=== PATIENT | female | born 1955 | race African-American/Black ===

== ENCOUNTER 2018-01-16 15:26 | Emergency (ER) | payer MEDICAID, OTHER ==
[~2018-01-16] VITALS: Ht 162.6 cm; Wt 75.7 kg
[~2018-01-16 15:26] MED LIST: NORCO 5-325 TA1 EACH ORAL
[2018-01-16] MEDS ORDERED: AMBIEN5 MG ORAL (15:47)
[2018-01-16] MEDS ORDERED: XANAX0.5 MG ORAL (15:47)
[2018-01-16] MEDS ORDERED: IBUPROFEN600 MG ORAL (15:48)
--- NOTE | 2018-01-16 16:20 | Emergency Room Report ---
History of Present Illness General Chief Complaint: Earache Source: Patient Present Illness HPI 62-year-old female presents to the emergency department complaining of bilateral tinnitus times one week. Patient denies vertigo, dizziness, headache , nausea or vomiting. Patient denies trauma or fall. Denies pain. She reports 2 weeks ago she had moderate low back pain for which she states she took more of an an aspirin then directed on OTC label. Patient states no new medications otherwise she currently takes in a as needed and Ambien for sleep as needed which she has been taking for " a while." Denies rashes, pain or stiffness. Denies history of high blood pressure. She reports some nasal congestion. Denies CP, Palpitations, LOC, AMS, dizziness, Changes in Vision, Sensation, paresthesias, or a sudden severe headache. Allergies: Uncoded Allergies: seafood (Allergy, Unknown, 08/27/14) Patient History Past Medical History: see triage record Past Surgical History: none Pertinent Family History: none Now: No Reviewed Nursing Documentation: PMH: Agreed; PSxH: Agreed Nursing Documentation-PMH Past Medical History: No Stated History Review of Systems All Other Systems: negative except mentioned in HPI Physical Exam Vital Signs Date Time Temp Pulse Resp B/P (MAP) Pulse Ox O2 Delivery O2 Flow Rate FiO2 01/16/18 15:42 97.7 79 16 128/82 97 Room Air 97.7 Sp02 EP Interpretation: reviewed, normal General Appearance: no apparent distress, alert, GCS 15, non-toxic Head: normocephalic, atraumatic Eyes: bilateral eye normal inspection, bilateral eye PERRL ENT: hearing grossly normal, normal voice, TMs + canals normal Neck: full range of motion, no carotid bruits Respiratory: lungs clear, normal breath sounds, speaking full sentences Cardiovascular #1: regular rate, rhythm Musculoskeletal: back normal, gait/station normal, normal range of motion Neurologic: alert, oriented x3, responsive, motor strength/tone normal, sensory intact, normal gait, speech normal, grossly normal Psychiatric: judgement/insight normal Skin: normal color, no rash, warm/dry, well hydrated Lymphatic: no adenopathy Medical Decision Making PA Attestation Dr. Wilhelm is my supervising Physician whom patient management has been discussed with. Diagnostic Impression: Primary Impression: Tinnitus, bilateral ER Course 62-year-old female presents to the emergency department complaining of bilateral tinnitus times one week. Patient denies vertigo, dizziness, headache , nausea or vomiting. Patient denies trauma or fall. Denies pain. She reports 2 weeks ago she had moderate low back pain for which she states she took more of an an aspirin then directed on OTC label. Patient states no new medications otherwise she currently takes in a as needed and Ambien for sleep as needed which she has been taking for " a while." Denies rashes, pain or stiffness. Denies history of high blood pressure. She reports some nasal congestion. Denies CP, Palpitations, LOC, AMS, dizziness, Changes in Vision, Sensation, paresthesias, or a sudden severe headache. Ddx considered but are not limited to Carotid artery pathology, labyrinthitis, ototoxicity, FB, OM/OE, just to name a few. Vital signs: are WNL, pt. is afebrile H&PE are most consistent with Normal ENT examination. no bruits. ORDERS: none required at this time, the diagnosis is clinical ED INTERVENTIONS: None required at this time. -d/w pt. conservative treatment, and to follow up with a primary care provider for ENT referral. pt given a list of primary care clinics for follow up. d/w pt. to return to the ED with worsening or new symptoms. Discussed with patient that she should take medications as directed. Discontinue use of ibuprofen. DISCHARGE: At this time pt. is stable for d/c to home. Will provide printed patient care instructions, and any necessary prescriptions. Care plan and follow up instructions have been discussed with the patient prior to discharge. Last Vital Signs Date Time Temp Pulse Resp B/P (MAP) Pulse Ox O2 Delivery O2 Flow Rate FiO2 01/16/18 15:42 97.7 79 16 128/82 97 Room Air 97.7 Disposition: HOME, SELF-CARE Condition: Stable Scripts Pseudoephedrine Hcl* (NEXAFED*) 30 Mg Tablet 30 MG ORAL Q6H, #15 TAB Prov: Estelle Whittington 01/16/18 Patient Instructions: Tinnitus Additional Instructions: Take any previously prescribed medications as directed. Follow up with am ENT Specialist and Customer Account Executive in 3-5 days, even if your symptoms have resolved. --Please review list of primary care clinics, if you do not already have a primary care provider Return sooner to ED if new symptoms occur, or current symptoms become worse. - Please note that this Emergency Department Report was dictated using Bravo[employer]admission nurse coordinator technology software, occasionally this can lead to erroneous entry secondary to interpretation by the dictation equipment. Estelle Whittington Jan 16, 2018 16:20
[2018-01-16] MEDS ORDERED: NEXAFED30 MG ORAL (16:33)
[2018-01-16 16:42] VITALS: BP 118/72
== END 2018-01-16 16:42 | disposition home or self-care (01) ==
LOC: EMR 16:14
DX: H93.13 Tinnitus, bilateral (principal)
CPT/HCPCS: 99283

== ENCOUNTER 2018-07-13 08:34 | Emergency (ER) | payer MEDICAID ==
[~2018-07-13] VITALS: Ht 162.6 cm; Wt 74.8 kg
[~2018-07-13 08:34] MED LIST changes: +AMBIEN5 MG ORAL; +IBUPROFEN600 MG ORAL; +NEXAFED30 MG ORAL; +XANAX0.5 MG ORAL
--- NOTE | 2018-07-13 09:17 | Emergency Room Report ---
History of Present Illness General Chief Complaint: Upper Respiratory Illness Source: Patient Present Illness HPI This patient states that for the past day she has had cough and brown-colored sputum production. She has a history of heavy tobacco use and continues to smoke. She states that usually when these type of symptoms occur she developed a pneumonia. She denies fever or chills. She denies nausea or vomiting. She is also requesting cough syrup with hydrocodone. She has no other complaints. Allergies: Uncoded Allergies: seafood (Allergy, Unknown, 08/27/14) Patient History Past Medical History: none, see triage record Social History: Reports: smoking; Denies: alcohol use, drug use Now: No Reviewed Nursing Documentation: PMH: Agreed; PSxH: Agreed Review of Systems All Other Systems: negative except mentioned in HPI Physical Exam Vital Signs Date Time Temp Pulse Resp B/P (MAP) Pulse Ox O2 Delivery O2 Flow Rate FiO2 07/13/18 08:39 98.4 90 18 106/68 98 Room Air 98.4 Sp02 EP Interpretation: reviewed, normal General Appearance: no apparent distress, alert, GCS 15, non-toxic Head: normocephalic, atraumatic Eyes: bilateral eye normal inspection, bilateral eye PERRL ENT: hearing grossly normal, normal pharynx, no angioedema, normal voice Neck: full range of motion, supple/symm/no masses Respiratory: chest non-tender, lungs clear, normal breath sounds, no respiratory distress, no retraction, no accessory muscle use, speaking full sentences Cardiovascular #1: regular rate, rhythm, no edema Gastrointestinal: normal bowel sounds, non tender, soft, non-distended, no guarding, no rebound Rectal: deferred Musculoskeletal: back normal, gait/station normal, normal range of motion, non- tender Neurologic: alert, oriented x3, responsive, motor strength/tone normal, sensory intact, speech normal Psychiatric: judgement/insight normal, memory normal, mood/affect normal, no suicidal/homicidal ideation Skin: normal color, no rash, warm/dry, well hydrated Medical Decision Making Diagnostic Impression: Primary Impression: Bronchitis ER Course This patient has a clinical presentation with bronchitis. The evaluation was very reassuring with a normal lung exam, no respiratory distress, normal pulse oximetry. The patient has a heavy history of tobacco use, and a history of pneumonia, so we will place this patient on a Z-[place]. She likely has undiagnosed COPD. I will treat supportively with cough suppressants, although I will not be prescribing narcotic-based cough syrup as I felt this is not indicated. The patient declined a chest x-ray. No emergency medical condition was identified. Last Vital Signs Date Time Temp Pulse Resp B/P (MAP) Pulse Ox O2 Delivery O2 Flow Rate FiO2 07/13/18 08:49 90 18 Room Air 07/13/18 08:39 98.4 106/68 98 98.4 Status: improved Disposition: HOME, SELF-CARE Condition: Improved Flower Wilhelm DO Jul 13, 2018 09:17
[2018-07-13 09:19] VITALS: BP 112/60
[2018-07-13] MEDS ORDERED: ZITHROMAX250 MG ORAL (09:22)
[2018-07-13] MEDS ORDERED: ROBITUSSIN NIG237 ML PO (09:22)
[2018-07-13] MEDS ORDERED: ANTI-ITCH28 G1 TP (09:22)
[2018-07-13 09:35] VITALS: BP 112/60
== END 2018-07-13 09:35 | disposition home or self-care (01) ==
LOC: EMR 09:21
DX: J40 Bronchitis, not specified as acute or chronic (principal)
CPT/HCPCS: 99282

== ENCOUNTER 2018-12-13 15:27 | Emergency (ER) | payer MEDICAID ==
[~2018-12-13] VITALS: Ht 162.6 cm; Wt 74.8 kg
[~2018-12-13 15:27] MED LIST changes: +ANTI-ITCH28 G1 TP; +ROBITUSSIN NIG237 ML PO; +ZITHROMAX250 MG ORAL
[2018-12-13 15:36] VITALS: BP 113/77
--- NOTE | 2018-12-13 15:40 | NUR ---
ED Nurse Note: Patient walked into ED c/o coughing for 10 days. a/o x4 ambulatory vss
--- NOTE | 2018-12-13 15:50 | Emergency Room Report ---
History of Present Illness General Chief Complaint: Flu Like Symptoms Source: Patient Present Illness HPI 64-year-old female with history of heavy tobacco smoking or complaining of 10 days of cough with green phlegm. Patient reports that she was taking cough medication with codeine that was given by her primary care doctor previously but her primary care doctor is in [place] and could not get a hold of her. Patient denies any fever or chills, any SOB, palpitations chest pain. Denies rhinorrhea or congestion. Denies sore throat and ear pain. Denies diarrhea or abdominal pain nausea vomiting. Allergies: Uncoded Allergies: seafood (Allergy, Unknown, 08/27/14) Patient History Past Medical History: see triage record Past Surgical History: none Social History: Reports: smoking - tobacco Immunizations: UTD Reviewed Nursing Documentation: PMH: Agreed; PSxH: Agreed Review of Systems All Other Systems: negative except mentioned in HPI Physical Exam Vital Signs Date Time Temp Pulse Resp B/P (MAP) Pulse Ox O2 Delivery O2 Flow Rate FiO2 12/13/18 15:36 97.7 75 16 113/77 95 Room Air Sp02 EP Interpretation: reviewed, normal General Appearance: normal inspection, well appearing, no apparent distress Head: normocephalic Eyes: bilateral eye normal inspection, bilateral eye PERRL ENT: normal ENT inspection, normal pharynx, no angioedema, TMs + canals normal Neck: normal inspection, supple Respiratory: normal inspection, chest non-tender, lungs clear, no rhonchi, no accessory muscle use Cardiovascular #1: normal inspection, regular rate, rhythm, no murmur Gastrointestinal: normal inspection, soft Musculoskeletal: normal inspection, back normal Neurologic: normal inspection, alert Psychiatric: normal inspection, judgement/insight normal Skin: normal inspection, normal color, no rash Lymphatic: normal inspection, no adenopathy Medical Decision Making PA Attestation All diagnoses and treatment plans are reviewed and discussed with my supervising physician Dr. Michele Diagnostic Impression: Primary Impression: Bronchitis ER Course 64-year-old female with history of heavy tobacco smoking or complaining of 10 days of cough with green phlegm. Patient reports that she was taking cough medication with codeine that was given by her primary care doctor previously but her primary care doctor is in [place] and could not get a hold of her. Patient denies any fever or chills, any SOB, palpitations chest pain. Denies rhinorrhea or congestion. Denies sore throat and ear pain. Denies diarrhea or abdominal pain nausea vomiting. Ddx considered but are not limited to bronchitis, pneumonia, ashtma Vital signs: are WNL, pt. is afebrile H&PE are most consistent with bronchitis ORDERS: azithromycin, medrol dose, albuterol camden hernandez ED INTERVENTIONS: None required at this time. DISCHARGE: At this time pt. is stable for d/c to home. Will provide printed patient care instructions, and any necessary prescriptions. Care plan and follow up instructions have been discussed with the patient prior to discharge. phenergen has been back ordered Last Vital Signs Date Time Temp Pulse Resp B/P (MAP) Pulse Ox O2 Delivery O2 Flow Rate FiO2 12/13/18 15:36 97.7 75 16 113/77 95 Room Air Disposition: HOME, SELF-CARE Condition: Stable Scripts Methylprednisolone (Methylprednisolone*) 4MG Dspk 4 MG ORAL DIRECTED for 6 Days, #21 EA 0 Refills Day 1: Two tablets before breakfast, one after lunch, one after dinner, and two at bedtime. If started late in the day, take all six tablets at once or divide into two or three doses, unless otherwise directed by prescriber. Day 2: One tablet before breakfast, one after lunch, one after dinner, and two at bedtime Day 3: One tablet before breakfast, one after lunch, one after dinner, and one at bedtime Day 4: One tablet before breakfast, one after lunch, and one at bedtime Day 5: One tablet before breakfast and one at bedtime Day 6: One tablet before breakfast Prov: Patsy Barr 12/13/18 Albuterol Sulfate (VENTOLIN HFA) 18 Gm Hfa.aer.ad 2 PUFFS INH EVERY 6 HOURS, #18 GM 0 Refills Prov: Patsy Barr 12/13/18 Benzonatate* (TESSALON PERLE*) 100 Mg Capsule 100 MG ORAL THREE TIMES A DAY, #30 PERLE Prov: Patsy Barr 12/13/18 Azithromycin* (ZITHROMAX*) 250 Mg Tablet 250 MG ORAL DAILY, #6 TAB 0 Refills Take two tables once daily for 1 day, then one tablet once daily for 4 days. Prov: Patsy Barr 12/13/18 Patient Instructions: Acute Bronchitis, [id number] Additional Instructions: follow riya spaulding primary Dr if no improvement. phenergen with codeine has been back ordered Patsy Barr Dec 13, 2018 15:50
[2018-12-13] MEDS ORDERED: MEDROL DOSEPAK4 MG ORAL (15:52)
[2018-12-13] MEDS ORDERED: ZITHROMAX250 MG ORAL (15:52)
[2018-12-13] MEDS ORDERED: VENTOLIN HFA18 GM INH (15:52)
[2018-12-13] MEDS ORDERED: TESSALON PERLE100 MG ORAL (15:52)
[2018-12-13 16:03] VITALS: BP 113/77
--- NOTE | 2018-12-13 16:04 | NUR ---
ER DISCHARGE NOTE: Patient is cleared to be discharged per ERMD, pt is aox4, on room air, with stable vital signs. pt was given dc and prescription instructions, pt was able to verbalize understanding, pt id band removed without complications. pt is able to ambulate with steady gait. pt took all belongings.
== END 2018-12-13 16:01 | disposition home or self-care (01) ==
LOC: EMR 15:51
DX: J40 Bronchitis, not specified as acute or chronic (principal)
CPT/HCPCS: 99282

== ENCOUNTER 2019-01-14 20:26 | Emergency (ER) | payer MEDICAID ==
[~2019-01-14] VITALS: Ht 162.6 cm; Wt 74.8 kg
[~2019-01-14 20:26] MED LIST changes: +MEDROL DOSEPAK4 MG ORAL; +TESSALON PERLE100 MG ORAL; +VENTOLIN HFA18 GM INH
[2019-01-14] MEDS ORDERED: XANAX2 MG ORAL (20:33)
[2019-01-14] MEDS ORDERED: AMBIEN10 MG ORAL (20:33)
[2019-01-14 20:44] VITALS: BP 128/78
[2019-01-14] MEDS ORDERED: Methocarbamol 500mg tab ORAL ONE (21:00)
[2019-01-14 21:22] LABS: APPEARANCE,URINE CLEAR; BILIRUBIN, URINE NEGATIVE (NEGATIVE); COLOR,URINE PALE YELLOW; GLUCOSE, URINE (UA) NEGATIVE (NEGATIVE); KETONES,URINE NEGATIVE (NEGATIVE); LEUKOCYTE ESTERASE ,URINE 3+ (NEGATIVE); NITRITE,URINE NEGATIVE (NEGATIVE); PH,URINE 5 (4.5-8.0); PROTEIN,URINE NEGATIVE (NEGATIVE); UROBILINOGEN,URINE NORMAL MG/DL (0.0-1.0)
--- NOTE | 2019-01-14 22:05 | Emergency Room Report ---
History of Present Illness General Chief Complaint: Headache Source: Patient, Medical Record Present Illness HPI Patient presents with left-sided headache that began about 10 AM. She was stuck in an elevator at [employer]. Then they had I fire alarm. Her anxiety was through the roof she says. She took a Xanax but the pain is persisted. She tried taking 800 mg Motrin. The pain is intermittent. The pain occurs its 10/ 10 systolic. It is in her neck and also radiates up to the left side of her head. She denies any focal weakness, numbness, visual changes fevers, chills, blood thinners or oncologic problems. There is no family history of aneurysms. Concerned about a possible stroke. Took Motrin before coming in. She took to 800 mg tablets. She feels they have not helped. No chest pain, palpitations, nausea, vomiting, diarrhea, dysuria, abdominal pain , shortness of breath. Allergies: Uncoded Allergies: seafood (Allergy, Unknown, 08/27/14) Patient History Past Medical History: see triage record Social History: Reports: smoking Social History Narrative From home Reviewed Nursing Documentation: PMH: Agreed; PSxH: Agreed Nursing Documentation-PMH History Of Psychiatric Problem: Yes - ANXIETY Review of Systems All Other Systems: negative except mentioned in HPI Physical Exam Vital Signs Date Time Temp Pulse Resp B/P (MAP) Pulse Ox O2 Delivery O2 Flow Rate FiO2 01/14/19 20:29 99.0 69 18 128/78 98 Room Air Sp02 EP Interpretation: reviewed, normal General Appearance: well appearing, no apparent distress, GCS 15 Head: normocephalic, atraumatic Eyes: bilateral eye normal inspection, bilateral eye PERRL, bilateral eye EOMI ENT: moist mucus membranes Neck: supple, no bony tend, tender - Minimal left side Respiratory: lungs clear, normal breath sounds Cardiovascular #1: regular rate, rhythm Cardiovascular #2: 2+ radial (R) Gastrointestinal: normal inspection, normal bowel sounds, non tender, no mass, non-distended Musculoskeletal: back normal, gait/station normal, normal range of motion Neurologic: alert, oriented x3, director [employer] III-XII nml as tested, motor strength/tone normal, DTRs symmetric, sensory intact, cerebellar normal, normal gait, speech normal Psychiatric: anxious Skin: normal inspection, warm/dry Medical Decision Making Diagnostic Impression: Primary Impression: Headache Qualified Codes: R51 - Headache Additional Impression: UTI (urinary tract infection) Qualified Codes: N30.00 - Acute cystitis without hematuria ER Course Patient presents with acute headache. Differential includes tension, anxiety, subarachnoid hemorrhage, migraine variant amongst others. Evaluation will be with CT of the head, EKG and labs. The patient will be treated with Reglan, Benadryl and Robaxin. Took Motrin recently and therefore Toradol is relatively contraindicated. CT head normal. Labs unremarkable. Urinalysis with pyuria. Patient given nitrofurantoin. Patient is improved here with treatment. Discussed findings. Advised to follow -up with her doctor. Patient stable for outpatient observation and treatment. Laboratory Tests Test 01/14/19 21:10 Urine Color Pale yellow Urine Appearance Clear Urine pH 5 (4.5-8.0) Urine Specific [place] 1.010 (1.005-1.035) Urine Protein Negative (NEGATIVE) Urine Glucose (UA) Negative (NEGATIVE) Urine Ketones Negative (NEGATIVE) Urine Blood 4+ (NEGATIVE) H Urine Nitrite Negative (NEGATIVE) Urine Bilirubin Negative (NEGATIVE) Urine Urobilinogen Normal MG/DL (0.0-1.0) Urine Leukocyte Esterase 3+ (NEGATIVE) H Urine RBC 5-10 /HPF (0 - 2) H Urine WBC 5-10 /HPF (0 - 2) H Urine Squamous Epithelial Cells Few /LPF (NONE/OCC) Urine Bacteria Few /HPF (NONE) Urine Opiates Screen Negative (NEGATIVE) Urine Barbiturates Screen Negative (NEGATIVE) Phencyclidine (PCP) Screen Negative (NEGATIVE) Urine Amphetamines Screen Negative (NEGATIVE) Urine Benzodiazepines Screen Positive (NEGATIVE) H Urine Cocaine Screen Negative (NEGATIVE) Urine Marijuana (THC) Screen Negative (NEGATIVE) EKG Diagnostic Results Rate: normal Rhythm: NSR ST Segments: no acute changes - LAD Rhythm Strip Diag. Results EP Interpretation: yes Rhythm: NSR, no PVC's, no ectopy CT/MRI/US Diagnostic Results CT/MRI/US Diagnostic Results : Imaging Test Ordered: head Impression no lesions Status: improved Disposition: HOME, SELF-CARE Condition: Improved Scripts Methocarbamol* (ROBAXIN*) 500 Mg Tablet 500 MG PO TID, #10 TAB 0 Refills Prov: Favio Nesbitt MD 01/14/19 Nitrofurantoin Monohyd/M-Cryst* (MACROBID 100 MG*) 100 Mg Capsule 100 MG ORAL EVERY 12 HOURS, #14 CAP Prov: Favio Nesbitt MD 01/14/19 Referrals: [facility] (PCP) Favio Nesbitt MD Jan 14, 2019 22:05
[2019-01-14] MEDS ORDERED: NITROFURANTOIN100 M2 ORAL (22:11)
[2019-01-14] MEDS ORDERED: ROBAXIN500 MG PO (22:11)
[2019-01-14 22:30] VITALS: BP 110/62
--- NOTE | 2019-01-15 11:02 | Diagnostic Imaging Report ---
Indication: Headache Technique: Contiguous 5 mm thick transaxial imaging of the head obtained in a Siemens Sensation [address] scanner. Soft tissue and bone windows generated. Automatic Exposure Control was utilized. Total Dose length Product (DLP): 1333.[address] Dose Index Volume (CTDIvol): 70.38 mGy Comparison: 08/27/2014 Findings: The size and configuration of the cortical sulci, basal cisterns, and ventricles are within normal limits for age. There is no mass effect, midline shift, or edema identified. There is no evidence of acute hemorrhage or abnormal intra-axial or extra-axial fluid collections. The bones and soft tissues are unremarkable. Impression: No mass effect, edema or acute bleed. [facility] has communicated the preliminary results to the Emergency Department. Their findings are largely concordant with this report. The CT scanner at [facility] is accredited by the [employer] and the scans are performed using dose optimization techniques as appropriate to a performed exam including Automatic Exposure control.
--- NOTE | 2019-01-15 21:56 | Cardiology Report ---
APPROVED REPORT EKG Measurement Heart [id number] Normal sinus rhythm Left axis deviation Abnormal ECG
== END 2019-01-14 22:30 | disposition home or self-care (01) ==
LOC: EMR 20:35
DX: R51 Headache (principal); N39.0 Urinary tract infection, site not specified; Z91.013 Allergy to seafood
CPT/HCPCS: 70450; 80307; 81003; 93005; 99284

== ENCOUNTER 2019-04-07 09:38 | Emergency (ER) | payer MEDICAID ==
[~2019-04-07] VITALS: Ht 162.6 cm; Wt 74.8 kg
[~2019-04-07 09:38] MED LIST changes: +AMBIEN10 MG ORAL; +NITROFURANTOIN100 M2 ORAL; +ROBAXIN500 MG PO; +XANAX2 MG ORAL
--- NOTE | 2019-04-07 09:47 | NUR ---
ED Nurse Note: Pt came in from home due to productive cough x 17 days, phlegm started "brownish and now greenish yellowish". No fever. AOx4, VSS david. Will cont to monitor.
[2019-04-07 09:48] VITALS: BP 132/74
--- NOTE | 2019-04-07 09:57 | Emergency Room Report ---
History of Present Illness General Chief Complaint: Upper Respiratory Illness Source: Patient Present Illness HPI Patient presents with complaints of cough ongoing for the past 2 weeks patient reports that initially A friend of hers was talking to her and later notified her that she was sick later that day patient started having Body ache and cough and the cough , sore throat has continued denies any fevers denies any neck pain or photophobia denies any shortness of breath patient reports that she was trying [id number] cough syrup which is not helping She has a bottle of cough syrup which she has used in the past Which she feels improved her symptoms Allergies: Uncoded Allergies: seafood (Allergy, Unknown, 08/27/14) Patient History Past Medical History: see triage record Pertinent Family History: none Reviewed Nursing Documentation: PMH: Agreed; PSxH: Agreed Nursing Documentation-PMH Past Medical History: No History, Except For Review of Systems All Other Systems: negative except mentioned in HPI Physical Exam Vital Signs Date Time Temp Pulse Resp B/P (MAP) Pulse Ox O2 Delivery O2 Flow Rate FiO2 04/07/19 09:41 97.9 79 16 136/78 (97) 96 Room Air Sp02 EP Interpretation: reviewed, normal General Appearance: well appearing, no apparent distress Head: normocephalic, atraumatic Eyes: bilateral eye PERRL, bilateral eye EOMI ENT: hearing grossly normal, TMs + canals normal, uvula midline, pharyngeal erythema Neck: full range of motion, supple, no meningismus, no bony tend Respiratory: lungs clear, normal breath sounds, no rhonchi, no respiratory distress, no retraction, no accessory muscle use Cardiovascular #1: normal peripheral pulses, regular rate, rhythm, no edema, no gallop, no JVD, no murmur Gastrointestinal: normal bowel sounds, non tender, soft, no mass, no organomegaly, non-distended, no guarding, no hernia, no pulsatile mass, no rebound Genitourinary: no CVA tenderness Musculoskeletal: normal inspection Neurologic: oriented x3, responsive, unit director III-XII nml as tested, motor strength/ tone normal, sensory intact Psychiatric: mood/affect normal Skin: no rash Lymphatic: normal inspection, no adenopathy Medical Decision Making Diagnostic Impression: Primary Impression: Pharyngitis Additional Impression: Cough ER Course Multiple differentials and consideration Patient's imaging is negative given the sore throat and some of the other complaints patient provided with antibiotics And requires close outpatient follow-up Chest X-Ray Diagnostic Results Chest X-Ray Diagnostic Results : Chest X-Ray Ordered: Yes # of Views/Limited/Complete: 1 View Indication: Chest Pain EP Interpretation: Yes Interpretation: no consolidation, no effusion, no pneumothorax Impression: No acute disease Electronically Signed by: Calvin Michele DO Last Vital Signs Date Time Temp Pulse Resp B/P (MAP) Pulse Ox O2 Delivery O2 Flow Rate FiO2 04/07/19 09:48 97.9 84 20 132/74 99 Room Air Status: improved Disposition: HOME, SELF-CARE Condition: Improved Scripts Promethazine HCl/Codeine (Prometh-Codein 6.25-10 mg/5 ml) 5 Ml Syrup 5 ML PO PRN for 7 Days, #133 ML Prov: Calvin Michele DO 04/07/19 Azithromycin* (ZITHROMAX*) 250 Mg Tablet 250 MG ORAL DAILY, #6 TAB 0 Refills Take two tables once daily for 1 day, then one tablet once daily for 4 days. Prov: Calvin Michele DO 04/07/19 Additional Instructions: Patient is provided with the discharge instructions notified to follow up with primary doctor in the next 2-3 days otherwise return to the er with any worsening symptoms. Please note that this report is being documented using [employer] technology. This can lead to erroneous entry secondary to incorrect interpretation by the dictating instrument. Calvin Michele DO Apr 07, 2019 09:57
[2019-04-07] MEDS ORDERED: PROMETH-CODEIN 65 ML PO (10:06)
[2019-04-07] MEDS ORDERED: ZITHROMAX250 MG ORAL (10:06)
--- NOTE | 2019-04-07 10:06 | NUR ---
ED Nurse Note: X-ray at bedside for imaging.
[2019-04-07 10:17] VITALS: BP 132/74
--- NOTE | 2019-04-07 10:17 | NUR ---
ER DISCHARGE NOTE: Patient is cleared to be discharged per ERMD, pt is aox4, on room air, with stable vital signs. pt was given dc and prescription instructions, pt was able to verbalize understanding, pt id band removed. pt is able to ambulate with steady gait. pt took all belongings.
--- NOTE | 2019-04-07 13:53 | Diagnostic Imaging Report ---
Indication: Cough Comparison: None A single view chest radiograph was obtained. Findings: No definite infiltrate or pulmonary vascular congestion identified. The heart is enlarged. The aorta is mildly enlarged consistent with atherosclerotic vascular disease. The bones are osteopenic. Impression: No acute disease
== END 2019-04-07 10:20 | disposition home or self-care (01) ==
LOC: EMR 10:18
DX: J02.9 Acute pharyngitis, unspecified (principal); R05 Cough; Z91.013 Allergy to seafood
CPT/HCPCS: 71045; 99283